=== PATIENT | female | born 1975 | race Caucasian/White ===

== ENCOUNTER → 2021-11-16 | Outpatient (CLI) | payer OTHER ==
--- NOTE | 2021-11-16 17:06 | RAD ---
US ABDOMEN LIMITED History: Reason: RIGHT SIDED BACK PAIN/ ATTEN TO GB / Spl. Instructions: / History: Comparison: None. Technique: Transabdominal ultrasound images are obtained of the right upper quadrant. Findings: Liver is normal in echogenicity. Right hepatic lobe measures 16.3 cm. Portal flow is hepatopedal. Cholelithiasis throughout the gallbladder. No gallbladder wall thickening or pericholecystic fluid. N egative sonographic [place] sign. Common bile duct measures 4 mm in diameter. Visualized pancreas unremarkable as visualized. The right kidney measures 10.0 x 4.0 x 4.0 cm. No hydronephrosis. Visualized portions of the aorta and IVC have normal caliber. IMPRESSION: 1. Cholelithiasis. Electronically signed by: Kar Sapp DO (11/16/2021 5:04 PM) [id number]
== END ==
LOC: US 12:17
PROVIDERS: ATTEND Nurse Practitioner
DX: K80.20 Calculus of gallbladder without cholecystitis without obstruction (principal)
CPT/HCPCS: 76705